=== PATIENT | male | born 1990 | race Caucasian/White ===

== ENCOUNTER 2023-05-30 18:44 | Emergency (ER) | payer OTHER ==
[2023-05-30] MEDS ORDERED: TORAdol 30 mg Injection IM ONE (19:29)
[2023-05-30] MEDS ORDERED: TORAdol 30 mg Injection ONE (19:31)
[2023-05-30 19:32] VITALS: TEMP 97.8; O2SAT 97
--- NOTE | 2023-05-30 19:37 | ERPHSYRPT ---
- History of Present Illness Time Seen by Provider: 05/30/23 19:20 Exam Limitations: no limitations Patient Subjective Stated Complaint: pt states that he has had pain behind his right knee for 21 years and that over the years he has been seen and evaluated by multiple physicians including a "specialist" that all told him there wasn't anything wrong with his knee. reports that he has also had multiple imaging studies over the years. states that there are "bones that come out behind his knee" and denies any pain at this time. Triage Nursing Assessment: pt ambulated to room 10 independently with slow steady gait. pt is alert and oriented times three, able to move all extremities, able to speak in complete sentences, and with resp even and unlabored. pt denies pain at this time, denies numbness/ tingling. right pedal pulse palpable and has ROM, sensation, color, cap refill all within normal limts. pt held RNs hand behind knee where he feels the "bones that come out behind his knee" as he flexed and extended right knee. no abnormality felt. no edema, injury, de formity, or open area noted. Physician History: Patient is a 32-year-old male presents to emergency department for evaluation of chronic pain to his right knee. Patient has seen multiple specialist. Patient is aware that he has bony fragments behind his knee. Patient attributes his pain to these bony fragments. Patient has seen the specialist in the past. Patient reports that these fragments are not amenable to surgery. However patient states that his right knee pain is progressively worsening. No recent injury no recent trauma. Pain described as an ache that is localized. Patient has some crepitation with range of motion of his involved right knee. Patient reports his knee flexion is limited as well. Symptoms are constant. Symptoms are moderate in intensity. No specific worsening improving factors. Patient has no other complaints. Patient voices no other complaints or concerns at this time. Portions of this note were created with voice recognition technology. There may be grammatical, spelling, punctuation or sound alike errors Method of Injury: other (No injury) Occurred: other (Chronic knee pain x21 years) Quality: intermittent (Pain is intermittent but now constant) Lower Extremities Pain: knee: right Modifying Factors: Improves With: other (Weightbearing, and range of motion) Associated Symptoms: none Allergies/Adverse Reactions: No Known Drug Allergies Allergy (Unverified 05/30/23 19:09) Hx Tetanus, Diphtheria Vaccination/Date Given: Yes Hx Influenza Vaccination/Date Given: No Hx Pneumococcal Vaccination/Date Given: No Immunizations Up to Date: Yes Travel Risk - International Travel Have you traveled outside of the country in past 3 weeks: No - Coronavirus Screening Are you exhibiting any of the following symptoms?: No Close contact with a COVID-19 positive Pt in past 14-21 Days: No - Vaccine Status Have you recieved a Covid-19 vaccination: No - Review of Systems Constitutional: No Symptoms, No Fever, No Chills Eyes: No Symptoms Ears, Nose, & Throat: No Symptoms Respiratory: No Symptoms, No Cough, No Dyspnea Cardiac: No Symptoms, No Chest Pain, No Edema, No Syncope Abdominal/Gastrointestinal: No Symptoms, No Abdominal Pain, No Nausea, No Vomiting, No Diarrhea Genitourinary Symptoms: No Symptoms, No Dysuria Musculoskeletal: No Symptoms, No Back Pain, No Neck Pain Skin: No Symptoms, No Rash Neurological: No Symptoms, No Dizziness, No Focal Weakness, No Sensory Changes Psychological: No Symptoms Endocrine: No Symptoms Hematologic/Lymphatic: No Symptoms Immunological/Allergic: No Symptoms All Other Systems: Reviewed and Negative - Past Medical History Pertinent Past Medical History: No Neurological History: No Pertinent History ENT History: No Pertinent History Cardiac History: No Pertinent History Respiratory History: No Pertinent History Endocrine Medical History: No Pertinent History Musculoskeletal History: Fractures GI Medical History: No Pertinent History History: No Pertinent History Psycho-Social History: No Pertinent History Male Reproductive Disorders: No Pertinent History - Past Surgical History Past Surgical History: Yes Neuro Surgical History: No Pertinent History Cardiac: No Pertinent History Respiratory: No Pertinent History Gastrointestinal: No Pertinent History Genitourinary: No Pertinent History Musculoskeletal: Orthopedic Surgery Male Surgical History: No Pertinent History Other Surgical History: right foot fx repair, vasectomy - Social History Smoking Status: Never smoker Exposure to second hand smoke: Yes Drug Use: none Patient Lives Alone: No - Nursing Vital Signs Nursing Vital Signs: Initial Vital Signs Temperature 97.8 F 05/30/23 19:10 Pulse Rate 75 05/30/23 19:10 Respiratory Rate 16 05/30/23 19:10 Blood Pressure 118/73 05/30/23 19:10 O2 Sat by Pulse Oximetry 97 05/30/23 19:10 Pain Scale Pain Intensity 0 - Physical Exam General Appearance: no apparent distress, alert Eyes, Ears, Nose, Throat Exam: moist mucous membranes Neck Exam: normal inspection, full range of motion Cardiovascular/Respiratory Exam: regular rate/rhythm, no respiratory distress Back Exam: normal inspection, No vertebral tenderness Hips Exam: bilateral: non-tender, normal inspection, normal range of motion, no evidence of injury Legs Exam: bilateral leg: non-tender, normal inspection, normal range of motion, no evidence of injury Knees Exam: right knee: pain, soft tissue tenderness, swelling (Minimal swelling), other (The involved right lower extremity is neurovascular intact distally. Compartments are soft. Cap refill less than 2 seconds. No open or draining lesions.), left knee: non-tender, normal inspection, normal range of motion, no evidence of injury Ankle Exam: bilateral ankle: non-tender, normal inspection, normal range of motion, no evidence of injury Foot Exam: bilateral foot: non-tender, normal inspection, normal range of motion, no evidence of injury Neuro/Tendon Exam: normal sensation, normal motor functions Mental Status Exam: alert, oriented x 3, cooperative Skin Exam: normal color, warm, dry SpO2 Interpretation: normal SpO2: 97 O2 Delivery: Room Air - Course Nursing assessment & vital signs reviewed: Yes - Radiology Exams Knee X-ray Interpretation: Interpreted by me (Posterior knee bone calcified foreign body, 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 No fracture dislocation. No soft tissue abnormalities) Ordered Tests: Active Orders 24 hr Category Date Time Status KNEE (3 VIEWS) Stat Exams 05/30/23 19:29 Taken Medication Summary Discontinued Medications Generic Name Dose Route Start Last Admin Trade Name Ayazq PRN Reason Stop Dose Admin Ketorolac Tromethamine 30 mg 05/30/23 19:29 05/30/23 19:32 Ketorolac Tromethamine 30 Mg/Ml Inj IM 05/30/23 19:30 30 mg STAT ONE Administration Ketorolac Tromethamine Confirm 05/30/23 19:31 Ketorolac Tromethamine 30 Mg/Ml Inj Administered 05/30/23 19:32 Dose 30 mg .ROUTE .STK-MED ONE - Progress Progress: improved Progress Note: Patient is a 32-year-old male presents to our ED with acute on chronic knee pain. Patient is aware that he has bony fragments/foreign bodies posterior right knee. Patient believes that this is causing worsening symptoms. It is not limiting his function. Physical exam shows that all 4 bar knee ligaments are stable and intact. The involved extremity is neurovascular tact distally. Compartments are soft. Cap refill less than 2 seconds. Flexion range of motion somewhat limited. There is some crepitation to his knee during range of motion. Patient referred to the orthopedic clinic for further evaluation and treatment. Patient declined bilateral axillary crutches for comfort. Patient received a dose of IM Toradol in our ED. A prescription for the same was forwarded to patient's pharmacy. A work note was provided. Orthopedic clinic referral provided as well. Portions of this note were created with voice recognition technology. There may be grammatical, spelling, punctuation or sound alike errors Complexity of problems addressed is low acute uncomplicated No critical care time Complex of data reviewed and analyzed is moderate. Test ordered test reviewed. Dr. Beck independently reviewed the x-ray. The findings were analyzed and clinically correlated with history and physical exam. Risk of complication and or risk of morbidity/mortality of patient management is moderate. Patient received a prescription for Toradol. Referral to the orthopedic clinic completed. Vital stable. Time spent to discharge patient approximately 15 minutes. Plan of care established for shared decision making. No social determinants of health present to impede follow-up. Portions of this note were created with voice recognition technology. There may be grammatical, spelling, punctuation or sound alike errors 05/30/23 20:12 Counseled pt/family regarding: diagnosis, need for follow-up, rad results - Departure Departure Disposition: Home Clinical Impression: Knee pain, right Condition: Stable Critical Care Time: No Referrals: MANUEL NINO SENIOR AGRICULTURAL ASSISTANT [Primary Care Provider] - Follow up/PCP as directed Instructions: Knee Pain ED Additional Instructions: Discharge/Care Plan LOR NGUYỄN was seen on 05/30/23 in the Emergency Room. The patient was counseled regarding Diagnosis,Lab results, Imaging studies, need for follow up and when to return to the Emergency Room. Prescriptions given: Discharge Note I have spoken with the patient and/or caregivers. I have explained the patient's condition, diagnosis and treatment plan based on the information available to me at this time. I have answered the patient's and/or caregiver's questions and addressed any concerns. The patient and/or caregivers have as good understanding of the patient's diagnosis, condition and treatment plan as can be expected at this point. The vital signs have been stable. The patient's condition is stable and appropriate for discharge from the emergency department. The patient will pursue further outpatient evaluation with the primary care physician or other designated or consulting physician as outlined in the discharge instructions. The patient and/or caregivers are agreeable to this plan of care and follow-up instructions have been explained in detail. The patient and/or caregivers have received these instruction. The patient/and or caregivers are aware that any significant change in condition or worsening of symptoms should prompt an immediate return to this or the closest emergency department or call 911. Forms: Work/School Release Form Prescriptions: Ketorolac Trometh 10 mg Tab [TORAdol 10 MG TABLET] 10 mg PO TID 5 Days #15 tablet Outpatient Orders: Ortho Referral Time Frame: 1 Day, Facility: [facility], Location: [facility]
[2023-05-30 19:40] VITALS: BP 103/60; PULSE 73; RESP 18
--- NOTE | 2023-05-31 08:55 | XRAY ---
Indication: Pain 21 years. Comparison: None 3 view right knee demonstrates small nonspecific effusion. 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 No other bony, articular, or soft tissue abnormalities.
== END 2023-05-30 20:20 | disposition home or self-care (01) ==
LOC: ED 18:44
DX: M25.561 Pain in right knee (principal); Z28.310 Unvaccinated for COVID-19
CPT/HCPCS: 73562; 96372; 99283; J1885